=== PATIENT | female | born 1985 | race Two or more races ===

== ENCOUNTER → 2024-07-03 | Outpatient (CLI) | payer MEDICAID, SELFPAY ==
--- NOTE | 2024-07-03 12:30 | XR_ITS ---
EXAMINATION: PET/CT FUSION SKULL TO THIGH EXAM DATE AND TIME: July 03, 2024 1318 hrs. Indications: Diagnosis breast cancer, restaging post treatment CTDI:vol (mGy) 6.41 DLP: (mGycm) 585.85 PROCEDURE: 15.65 mCi FDG was administered intravenously To allow for distribution and uptake of radiotracer, the patient was allowed to rest quietly in a shielded room. Imaging was performed on an integrated 16-slice PET/CT scanner, with scanning from the skull base to the mid thigh. Serum blood glucose at the time of the injection was measured 86 mg/dL. CT scanning was performed without oral or intravenous contrast material. FINDINGS: Head and Neck: Small hypermetabolic nodules retroclavicular on the right, the largest 12 mm Chest: Hypermetabolic 12 mm right tracheobronchial, hypermetabolic multiple high left periaortic lymph nodes ranging in size from 4 to 12 mm Hypermetabolic precarinal lymph nodes measuring up to 8 mm 12 mm hypermetabolic right hilar lymphadenopathy Weakly hypermetabolic angular mass lateral left breast 24 mm Prominent vascular congestion 8 mm non hypermetabolic pulmonary nodule right upper lobe image 70 Multiple left axillary surgical clips Abdomen and Pelvis: There is no sinai hypermetabolism in retroperitoneal or pelvic chains. The spleen is normal in size and FDG avidity. Musculoskeletal: 6 mm sclerotic focus left anterior L1 vertebral body 4 mm sclerotic focus intertrochanteric right hip IMPRESSION: Hypermetabolic right retroclavicular and extensive mediastinal lymphadenopathy 8mm pulmonary nodule right upper lobe, recommend high-resolution CT chest post intravenous contrast follow-up Suspicious for osteoblastic metastatic disease, recommend whole body bone scan follow-up
== END | disposition home or self-care (01) ==
PROVIDERS: PCP Internal Medicine Hematology & Oncology; Referring Provider Internal Medicine Hematology & Oncology; Visit Provider Internal Medicine Hematology & Oncology
DX: R91.1 Solitary pulmonary nodule (principal); R93.7 Abnormal findings on diagnostic imaging of other parts of musculoskeletal system; C50.212 Malignant neoplasm of upper-inner quadrant of left female breast
CPT/HCPCS: 78815; A9552

== ENCOUNTER → 2024-07-28 | Outpatient (CLI) | payer MEDICAID, SELFPAY ==
[2024-07-28 08:39] LABS: HCG Qualitative,Urine Negative
--- NOTE | 2024-07-28 14:00 | XR_ITS ---
Examination: Bone scan whole body, radioisotope Date and time of exam: July 28, 2024 1332 hours INDICATIONS: Diagnosis malignant neoplasm upper inner quadrant left female breast, metastatic intrathoracic lymph nodes, status post lumpectomy radiation therapy receiving chemotherapy, patient has bodyaches and pain, PET CT scan osteoblastic metastases Technique: Study has been performed with intravenous administration of 26 mci 99M technetium MDP. Anterior, posterior whole body images are obtained. Images have been obtained including the lower extremities. Findings: Foci increased isotope accumulation right frontal bone, lower anterior right ribs, posterior left upper ribs, right hip, lower dorsal spine IMPRESSION: Positive bone scan although nonspecific, recommend plain films skull series, thoracic spine, AP pelvis right hip, right ribs follow-up
== END | disposition home or self-care (01) ==
LOC: SNUC 08:14
PROVIDERS: PCP Family Medicine; Referring Provider Internal Medicine Hematology & Oncology; Visit Provider Internal Medicine Hematology & Oncology
DX: R93.7 Abnormal findings on diagnostic imaging of other parts of musculoskeletal system (principal); C77.1 Secondary and unspecified malignant neoplasm of intrathoracic lymph nodes; C50.212 Malignant neoplasm of upper-inner quadrant of left female breast; Z32.00 Encounter for pregnancy test, result unknown
CPT/HCPCS: 78306; 81025; A9503